=== PATIENT | male | born 1950 | race African-American/Black ===

== ENCOUNTER 2017-03-27 17:53 | Inpatient (IN) | payer MEDICARE, MEDICAID ==
[~2017-03-27] VITALS: Ht 182.9 cm; Wt 94.3 kg
[~2017-03-27 17:53] MED LIST: ASPI-1035 PO; ATEN50TA PO; ATOR20TA PO; BENA20TA3 PO; FURO40TA5 PO; LOSA50TA20 PO; METH10TA7 PO; POTA10TA15 PO
[2017-03-27] MEDS ORDERED: SODIUM CHLORIDE 0.9% 1,000 ML IV ONE (18:22)
[2017-03-27 18:49] LABS: BASOPHILS % 0.7 % (0.0-2.0); HEMATOCRIT. 48.4 % (42.0-52.0); HEMOGLOBIN. 16.1 g/dL (14.0-18.0); LYMPHOCYTES % 15.7 % (20.0-50.0); MEAN CORPUSCULAR HEMOGLOBIN 28.5 pg (28.0-32.0); MEAN CORPUSCULAR HGB CONC 33.3 g/dL (31.0-37.0); MEAN CORPUSCULAR VOLUME 85.7 fL (80.0-94.0); MEAN PLATELET VOLUME 9.7 fl (7.4-10.4); MONOCYTES % 7.7 % (2.0-8.0); NEUTROPHILS % 74.9 % (40.0-76.0); PLATELET 175 x1000/uL (130-400); RED BLOOD CELL COUNT 5.65 mill/uL (4.7-6.1); RED CELL DISTRIBUTION WIDTH 13.6 % (11.6-14.6); WHITE BLOOD COUNT 14.4 x1000/uL (4.5-11.0)
[2017-03-27 18:54] LABS: CHLORIDE 108 mEq/L (98-107)
[2017-03-27 18:57] LABS: INR 1.1; PARTIAL THROMBOPLASTIN TIME 25.8 sec (24.0-34.0); PROTHROMBIN TIME 11.4 sec
[2017-03-27 19:01] LABS: ALANINE AMINOTRANSFERASE 57 IU/L (13-61); ALBUMIN 3.2 g/dL (3.4-5.0); ANION GAP 15; CALCIUM 9.2 mg/dL (8.5-10.1); CARBON DIOXIDE 23 mEq/L (21-32); INDEX HEMOLYSI 1 (1-3); INDEX ICTERIC 1 (1-4); INDEX LIPEMIC 1 (1-3); MAGNESIUM 1.8 mg/dL (1.8-2.4); UREA NITROGEN BLOOD 22 mg/dL (7-21); eGFR 43 mL/min (>60)
[2017-03-27 19:04] LABS: CREATINE KINASE MB FRACTION 1.8 ng/mL (0.5-3.6); NT PRO B-TYPE NATRIURETIC PEP 1144 pg/mL (5-125); TROPONIN I 0.17 ng/mL (0.00-0.04)
[2017-03-27 19:07] LABS: T4 FREE 1.27 ng/dL (0.76-1.46)
[2017-03-27 19:11] LABS: T3 FREE 4.25 pg/ml (2.18-3.98)
[2017-03-27] MEDS ORDERED: ASPIRIN 325MG EC TABLET PO ONE (19:45)
[2017-03-27] MEDS ORDERED: CLONIDINE 0.1MG TABLET PO PRN (20:00)
[2017-03-27] MEDS ORDERED: ZOLPIDEM TARTRATE 5MG TABLET PO PRN (20:00)
[2017-03-27] MEDS ORDERED: NITROGLYCERIN 0.4MG TABLET SL SL PRN (20:00)
[2017-03-27] MEDS ORDERED: DOCUSATE SODIUM 100MG CAPSULE PO PRN (20:00)
[2017-03-27] MEDS ORDERED: ONDANSETRON HCL 4MG/2ML VIAL IV PRN (20:00)
[2017-03-27] MEDS ORDERED: ACETAMINOPHEN 325MG TABLET PO PRN (20:00)
[2017-03-27] MEDS ORDERED: IPRATROPIUM/ALBUTEROL 0.5-3(2.5)MG/3ML NEB INH PRN (20:00)
[2017-03-27] MEDS ORDERED: NA PHOS,M-B/NA PHOS,DI-BA ENEMA 118ML PR PRN (20:00)
[2017-03-27] MEDS ORDERED: MAGNESIUM/ALUMINUM HYDROXIDE/SIMETHICONE 30ML UDC PO PRN (20:00)
[2017-03-27] MEDS ORDERED: ENOXAPARIN 40MG/0.4ML SYR SUBCUT SCH (20:00)
[2017-03-27] MEDS ORDERED: TRAMADOL 50MG TABLET PO PRN (20:00)
[2017-03-27] MEDS ORDERED: LORAZEPAM 2MG/ML CPJ IV PRN (20:00)
[2017-03-27] MEDS ORDERED: DIPHENHYDRAMINE 50MG/ML VIAL IV PRN (20:00)
[2017-03-27] MEDS ORDERED: GUAIFENESIN 200MG/10ML SUGAR FREE UDC PO PRN (20:00)
[2017-03-27] MEDS ORDERED: LEVOFLOXACIN 500MG PREMIX 100 ML IV NR (20:15)
[2017-03-27] MEDS ORDERED: ATORVASTATIN CALCIUM 20MG TABLET PO NR (20:15)
[2017-03-27 20:23] LABS: HDL CHOLESTEROL 39 mg/dL (40-59); INDEX HEMOLYSI 1 (1-3); INDEX ICTERIC 1 (1-4); INDEX LIPEMIC 1 (1-3); LDL CHOLESTEROL 79 mg/dL (5-100); TRIGLYCERIDE 83 mg/dL (0-150)
[2017-03-27 20:41] LABS: LACTIC ACID 2.8 mmol/L (0.4-2.0)
[2017-03-27 20:49] LABS: THYROID STIMULATING HORMONE < 0.01 uIU/mL (0.36-3.74)
[2017-03-27] MEDS: SODIUM CHLORIDE 0.9% 1,000 ML IV SCH (22:13)
[2017-03-27 22:30] VITALS: BP 112/69
[2017-03-27 22:45] VITALS: BP 112/69
[2017-03-27] MEDS ORDERED: DEXTROSE 50% WATER 50ML SYRINGE IV PRN (23:00)
[2017-03-27] MEDS ORDERED: CEFTRIAXONE 1 G PREMIX 50 ML IV SCH (23:00)
[2017-03-27] MEDS ORDERED: BUPR150T4 PO (23:45)
[2017-03-27 23:52] LABS: CREATINE KINASE MB FRACTION 1.6 ng/mL (0.5-3.6); TROPONIN I 0.16 ng/mL (0.00-0.04)
[2017-03-28] VITALS: BP 116/72
[2017-03-28] MEDS: SODIUM CHLORIDE 0.9% 1,000 ML IV SCH (02:07)
[2017-03-28 04:00] VITALS: BP 107/61
[2017-03-28] MEDS: BLOOD SUGAR DIAGNOSTIC STRIP TEST SCH ×4 (06:01→20:26)
[2017-03-28] MEDS: INSULIN LISPRO 100 UNITS/ML SUBCUT SCH ×5 (06:01→20:26)
[2017-03-28 07:26] LABS: CREATINE KINASE MB FRACTION 1.6 ng/mL (0.5-3.6); TROPONIN I 0.14 ng/mL (0.00-0.04)
[2017-03-28 08:00] VITALS: BP 119/83
[2017-03-28] MEDS ORDERED: METHIMAZOLE 5MG TABLET PO SCH (09:00)
[2017-03-28] MEDS ORDERED: CLOPIDOGREL 75MG TABLET PO SCH (09:00)
[2017-03-28 10:02] LABS: CLARITY URINE CLEAR (CLEAR); COLOR URINE DARK YELLOW (YELLOW); GLUCOSE URINE NEGATIVE (NEGATIVE); KETONES URINE TRACE (NEGATIVE); LEUKOCYTE ESTERASE URINE NEGATIVE (NEGATIVE); NITRITE URINE NEGATIVE (NEGATIVE); OCCULT BLOOD URINE NEGATIVE (NEGATIVE); PROTEIN URINE NEGATIVE (NEGATIVE)
[2017-03-28 10:28] LABS: *AMPHETAMINES SCREEN URINE NEGATIVE (NEGATIVE); *BARBITURATES SCREEN URINE NEGATIVE (NEGATIVE); *BENZODIAZEPINES SCREEN URINE NEGATIVE (NEGATIVE); *COCAINE SCREEN URINE NEGATIVE (NEGATIVE); CANNABINOID URINE SCREEN NEGATIVE (NEGATIVE); ECSTASY MDMA SCREEN URINE NEGATIVE (NEGATIVE); METHADONE URINE SCREEN NEGATIVE (NEGATIVE); OPIATES URINE SCREEN NEGATIVE (NEGATIVE); PHENCYCLIDINE URINE SCREEN NEGATIVE (NEGATIVE)
[2017-03-28 11:19] LABS: T4 FREE 1.23 ng/dL (0.76-1.46)
[2017-03-28 11:24] LABS: T3 FREE 3.08 pg/ml (2.18-3.98)
[2017-03-28 11:43] LABS: FOLIC ACID (FOLATE) SERUM 14.5 ng/mL (>5.38)
[2017-03-28 12:00] VITALS: BP 126/88
[2017-03-28] MEDS: METHIMAZOLE 5MG TABLET PO SCH ×2 (13:54→20:27)
[2017-03-28] MEDS: APIXABAN 5 MG TABLET PO SCH (16:52)
[2017-03-28 20:00] VITALS: BP 123/83
[2017-03-28] MEDS ORDERED: LEVOFLOXACIN 250MG PREMIX 50 ML IV SCH ×2 (20:00→22:00)
[2017-03-28] MEDS: ATORVASTATIN CALCIUM 20MG TABLET PO SCH (20:27)
[2017-03-28] MEDS ORDERED: CEFTRIAXONE 1 G PREMIX 50 ML IV SCH (23:00)
[2017-03-29] VITALS: BP 138/78
[2017-03-29 04:00] VITALS: BP 133/84
[2017-03-29] MEDS: SODIUM CHLORIDE 0.9% 1,000 ML IV SCH ×2 (04:20→21:22)
[2017-03-29 06:19] LABS: BASOPHILS % 0.7 % (0.0-2.0); EOSINOPHILS % 1.5 % (0.0-5.0); HEMOGLOBIN. 14.6 g/dL (14.0-18.0); LYMPHOCYTES % 22.3 % (20.0-50.0); MEAN CORPUSCULAR HEMOGLOBIN 28.3 pg (28.0-32.0); MEAN CORPUSCULAR HGB CONC 33.2 g/dL (31.0-37.0); MEAN CORPUSCULAR VOLUME 85.2 fL (80.0-94.0); MEAN PLATELET VOLUME 9.9 fl (7.4-10.4); MONOCYTES % 7.4 % (2.0-8.0); NEUTROPHILS % 68.1 % (40.0-76.0); PLATELET 168 x1000/uL (130-400); RED BLOOD CELL COUNT 5.17 mill/uL (4.7-6.1); RED CELL DISTRIBUTION WIDTH 13.5 % (11.6-14.6); WHITE BLOOD COUNT 13.8 x1000/uL (4.5-11.0)
[2017-03-29] MEDS: METHIMAZOLE 5MG TABLET PO SCH ×3 (06:19→21:10)
[2017-03-29] MEDS: INSULIN LISPRO 100 UNITS/ML SUBCUT SCH ×4 (06:23→21:11)
[2017-03-29] MEDS: BLOOD SUGAR DIAGNOSTIC STRIP TEST SCH ×4 (06:23→21:10)
[2017-03-29 08:30] VITALS: BP_SYST 137; BP_SYST 140; BP_DIAS 83; BP_DIAS 98
[2017-03-29] MEDS: APIXABAN 5 MG TABLET PO SCH ×2 (08:49→21:10)
[2017-03-29 09:33] LABS: ALANINE AMINOTRANSFERASE 49 IU/L (13-61); ANION GAP 12; CALCIUM 9.1 mg/dL (8.5-10.1); CARBON DIOXIDE 24 mEq/L (21-32); CHLORIDE 107 mEq/L (98-107); INDEX HEMOLYSI 3 (1-3); INDEX ICTERIC 1 (1-4); INDEX LIPEMIC 1 (1-3); UREA NITROGEN BLOOD 15 mg/dL (7-21); eGFR > 60 mL/min (>60)
[2017-03-29 10:17] LABS: BASOPHILS % 1.1 % (0.0-2.0); HEMATOCRIT. 43.1 % (42.0-52.0); HEMOGLOBIN. 14.3 g/dL (14.0-18.0); LYMPHOCYTES % 31.2 % (20.0-50.0); MEAN CORPUSCULAR HEMOGLOBIN 28.4 pg (28.0-32.0); MEAN CORPUSCULAR HGB CONC 33.2 g/dL (31.0-37.0); MEAN CORPUSCULAR VOLUME 85.5 fL (80.0-94.0); MEAN PLATELET VOLUME 9.5 fl (7.4-10.4); MONOCYTES % 6.6 % (2.0-8.0); NEUTROPHILS % 59.1 % (40.0-76.0); PLATELET 161 x1000/uL (130-400); RED BLOOD CELL COUNT 5.04 mill/uL (4.7-6.1); RED CELL DISTRIBUTION WIDTH 13.5 % (11.6-14.6); WHITE BLOOD COUNT 8.8 x1000/uL (4.5-11.0)
[2017-03-29 12:30] VITALS: BP 138/78
[2017-03-29 16:00] VITALS: BP 142/91
[2017-03-29 20:00] VITALS: BP 151/98
[2017-03-29] MEDS: METOPROLOL TARTRATE 50MG TABLET PO SCH (21:10)
[2017-03-29] MEDS: ATORVASTATIN CALCIUM 20MG TABLET PO SCH (21:10)
[2017-03-30] VITALS: BP 123/82
[2017-03-30 04:00] VITALS: BP 140/77
[2017-03-30] MEDS: INSULIN LISPRO 100 UNITS/ML SUBCUT SCH ×4 (06:25→22:31)
[2017-03-30] MEDS: BLOOD SUGAR DIAGNOSTIC STRIP TEST SCH ×4 (06:25→21:00)
[2017-03-30] MEDS: METHIMAZOLE 5MG TABLET PO SCH ×3 (06:59→22:28)
[2017-03-30 08:00] VITALS: BP 140/98
[2017-03-30] MEDS: CYANOCOBALAMIN 1000MCG TABLET PO SCH (09:00)
[2017-03-30] MEDS: METOPROLOL TARTRATE 50MG TABLET PO SCH ×2 (09:01→22:29)
[2017-03-30] MEDS: APIXABAN 5 MG TABLET PO SCH ×2 (09:01→22:28)
[2017-03-30] MEDS: SODIUM CHLORIDE 0.9% 1,000 ML IV SCH ×2 (09:01→18:27)
[2017-03-30 12:00] VITALS: BP 150/79
[2017-03-30 16:00] VITALS: BP 125/77
[2017-03-30] MEDS ORDERED: CYANOCOBALAMIN 1000MCG/ML VIAL IM NR (16:00)
[2017-03-30 20:00] VITALS: BP 139/78
[2017-03-30] MEDS: ATORVASTATIN CALCIUM 20MG TABLET PO SCH (22:28)
[2017-03-31] VITALS: BP 124/70
[2017-03-31 04:00] VITALS: BP 147/77
[2017-03-31] MEDS: SODIUM CHLORIDE 0.9% 1,000 ML IV SCH (04:00)
[2017-03-31] MEDS: INSULIN LISPRO 100 UNITS/ML SUBCUT SCH ×2 (06:05→11:54)
[2017-03-31] MEDS: BLOOD SUGAR DIAGNOSTIC STRIP TEST SCH ×2 (06:05→11:54)
[2017-03-31] MEDS: METHIMAZOLE 5MG TABLET PO SCH (06:13)
[2017-03-31 08:00] VITALS: BP 128/65
[2017-03-31] MEDS: APIXABAN 5 MG TABLET PO SCH (08:44)
[2017-03-31] MEDS: CYANOCOBALAMIN 1000MCG TABLET PO SCH (08:44)
[2017-03-31] MEDS: METOPROLOL TARTRATE 50MG TABLET PO SCH (08:46)
[2017-03-31 12:00] VITALS: BP 158/102
[2017-03-31 12:35] VITALS: BP 128/65
== END 2017-03-31 13:23 | disposition home or self-care (01) | DRG 871 ==
LOC: ER 18:00 → 5WST 19:34 → SUPCPDRO 19:45
PROVIDERS: ADMIT Internal Medicine; ATTEND Internal Medicine
DX: A41.9 Sepsis, unspecified organism (principal); I63.9 Cerebral infarction, unspecified; N17.0 Acute kidney failure with tubular necrosis; E87.2 Acidosis; G81.94 Hemiplegia, unspecified affecting left nondominant side; I13.0 Hypertensive heart and chronic kidney disease with heart failure and stage 1 through stage 4 chronic kidney disease, or unspecified chronic kidney disease; R41.4 Neurologic neglect syndrome; E44.0 Moderate protein-calorie malnutrition; R65.10 Systemic inflammatory response syndrome (SIRS) of non-infectious origin without acute organ dysfunction; E05.00 Thyrotoxicosis with diffuse goiter without thyrotoxic crisis or storm; E11.22 Type 2 diabetes mellitus with diabetic chronic kidney disease; E78.00 Pure hypercholesterolemia, unspecified; E78.5 Hyperlipidemia, unspecified; H53.462 Homonymous bilateral field defects, left side; I50.9 Heart failure, unspecified; R29.810 Facial weakness; F17.200 Nicotine dependence, unspecified, uncomplicated; I48.0 Paroxysmal atrial fibrillation; N18.9 Chronic kidney disease, unspecified; R47.1 Dysarthria and anarthria; Z95.810 Presence of automatic (implantable) cardiac defibrillator; Z79.4 Long term (current) use of insulin; Z86.73 Personal history of transient ischemic attack (TIA), and cerebral infarction without residual deficits; Z68.28 Body mass index [BMI] 28.0-28.9, adult
CPT/HCPCS: 36415; 70450; 71010; 80053; 80061; 80305; 81003; 82550; 82553; 82607; 82746; 82962; 83036; 83605; 83735; 83880; 84439; 84443; 84481; 84484; 85025; 85610; 85730; 86850; 86900; 87040; 87086; 92523; 92610; 93005; 93306; 93970; 94664; 96361; 96372; 96374; 97116; 97162; 97166; 99291; J0696; J1650; J1815; J1956; J3420; J7030; J7620